=== PATIENT | male | born 1950 | race Caucasian/White ===

== ENCOUNTER → 2018-09-24 14:02 | Outpatient (CLI) | payer MEDICARE, BC ==
[2018-09-27 14:14] LABS: IMMUNOGLOBULIN E 129 IU/mL (0-100)
== END | disposition home or self-care (01) ==
LOC: D.RT 14:02
PROVIDERS: Internal Medicine Pulmonary Disease
DX: J44.9 Chronic obstructive pulmonary disease, unspecified (principal); J30.9 Allergic rhinitis, unspecified

== ENCOUNTER 2019-04-27 05:34 | Day surgery (SDC) | payer MEDICARE, BC ==
[~2019-04-27] VITALS: Ht 167.6 cm; Wt 57.7 kg
[2019-04-27 05:57] LABS: HEMATOCRIT 45.9 % (42.0-54.0); HEMOGLOBIN 15.5 g/dL (13.5-17.5); MCH 29.9 pg (26.0-34.0); MCHC 33.8 g/dL (31.0-37.0); MCV 88.6 fL (80.0-100.0); MEAN PLATELET VOLUME 9.7 fL (7.4-10.4); RBC 5.18 10x6/uL (4.20-6.10); RDW 13.2 % (11.5-14.5); WBC 8.3 10x3/uL (4.8-10.8)
[2019-04-27] MEDS ORDERED: CALAN SR120 MG PO (07:07)
[2019-04-27] MEDS ORDERED: REMERON15 MG PO (07:08)
[2019-04-27] MEDS ORDERED: SYMBICORT 16010.2 GM INH (07:08)
[2019-04-27] MEDS ORDERED: KLONOPIN1 MG PO (07:08)
[2019-04-27] MEDS ORDERED: ATROVENT 0.02%2.5 ML UPD (07:09)
[2019-04-27] MEDS ORDERED: SINGULAIR10 MG PO (07:09)
[2019-04-27] MEDS ORDERED: ALBUTEROL2.5 MG/3 M INH (07:10)
[2019-04-27] MEDS ORDERED: SPIRIVA RESPIMAT4 G1 INH (07:10)
[2019-04-27] MEDS ORDERED: MEGACE40 MG PO (07:11)
[2019-04-27] MEDS ORDERED: BUSPAR5 MG PO (07:11)
[2019-04-27] MEDS ORDERED: NEXIUM40 MG PO (07:12)
[2019-04-27] MEDS ORDERED: CLARITIN 10 MG10 MG PO (07:12)
[2019-04-27 07:46] VITALS: BP 120/71; Ht 167.6 cm; Wt 57.7 kg
--- NOTE | 2019-04-27 09:17 | NUR ---
0840-RECD TO ROOM FROM GI LAB. DR DIAZ IN TO REPORT FINDINGS. 909-DISCHARGE INSTRUCTIONS REVIEWED. 911-D/C HOME VIA WHEELCHAIR WITH .
--- NOTE | 2019-04-28 15:43 | OP ---
PATIENT NAME: YESSY JAIN MEDICAL RECORD: [id number] :52 LOCATION:[facility] ADMISSION DATE: SURGEON: MERY DIAZ DO DATE OF OPERATION: 04/27/2019 PROCEDURES: EGD with biopsies. INDICATIONS FOR PROCEDURE: Epigastric fullness, GERD, nausea. SCOPE: Olympus video gastroscope. MEDICATIONS: Propofol 100 mg IV per anesthesia. ESTIMATED BLOOD LOSS: Minimal. COMPLICATIONS: None. FINDINGS: Informed consent was given. The patient was made comfortable with the above medication. After reaching an adequate level of sedation by slow IV push, the patient was placed on the left side. The endoscope was advanced under direct visualization through the mouth to the second portion of the duodenum. The entire esophagus appeared normal, other than some reflux, which was apparent on passage of the endoscope through the esophagus itself. At the GE junction, the Z-line appeared normal without evidence of severe reflux esophagitis. The endoscope was advanced beyond the GE junction into the stomach and retroflexed to view the cardia and fundus, which appeared normal. Throughout the body of the stomach, the antrum, and prepyloric regions, there were some granularity and erythema consistent with patchy gastritis. Random cold forceps biopsies were taken to submit for histopathology and to rule out the presence of H. pylori. The endoscope was advanced beyond the pylorus into the duodenum, which appeared normal to the second portion. The endoscope was withdrawn from the patient. The patient tolerated the procedure well and there were no complications. IMPRESSION: 1. Reflux visualized on passage of the endoscope through the esophagus. 2. Mild gastritis. Biopsies taken. PLAN AND RECOMMENDATIONS: 1. Discharge home when recovery parameters are met. 2. Follow up biopsy specimen results. 3. GERD diet and reflux precautions. 4. Continue current medications. 5. Gastric emptying scan to rule out gastroparesis based on symptoms of epigastric fullness and nausea. TRANSINT:[id number] Voice Confirmation ID: [id number] DOCUMENT ID: [id number] OPERATIVE REPORT [id number] YESSY JAIN MERY DAIZ DO at 1543 CC: [id number] DICTATION DATE: 04/27/19 0833 CREDENTIALER: 04/27/19 1126 [facility] 04/27/19 [place] [address]
== END 2019-04-27 09:12 | disposition home or self-care (01) ==
LOC: D.OPS 05:34
PROVIDERS: Anesthesiology; ATTEND Internal Medicine Gastroenterology
DX: K21.9 Gastro-esophageal reflux disease without esophagitis (principal); R11.0 Nausea; K29.70 Gastritis, unspecified, without bleeding; Z01.812 Encounter for preprocedural laboratory examination

== ENCOUNTER → 2019-04-30 11:28 | Outpatient (CLI) | payer MEDICARE, BC ==
[2019-04-27 07:46] VITALS: BMI 20.5
[~2019-04-30 11:28] MED LIST: ALBUTEROL2.5 MG/3 M INH; ATROVENT 0.02%2.5 ML UPD; BUSPAR5 MG PO; CALAN SR120 MG PO; CLARITIN 10 MG10 MG PO; KLONOPIN1 MG PO; MEGACE40 MG PO; NEXIUM40 MG PO; REMERON15 MG PO; SINGULAIR10 MG PO; SPIRIVA RESPIMAT4 G1 INH; SYMBICORT 16010.2 GM INH
== END | disposition home or self-care (01) ==
LOC: D.NM 11:28
PROVIDERS: ATTEND Internal Medicine Gastroenterology
DX: R10.13 Epigastric pain (principal); R11.0 Nausea

== ENCOUNTER 2019-05-11 09:19 | Day surgery (SDC) | payer MEDICARE, BC ==
[~2019-05-11] VITALS: Ht 167.6 cm; Wt 57.7 kg
[2019-05-11 09:33] LABS: HEMATOCRIT 46.7 % (42.0-54.0); HEMOGLOBIN 15.8 g/dL (13.5-17.5); MCH 30.2 pg (26.0-34.0); MCHC 33.8 g/dL (31.0-37.0); MCV 89.1 fL (80.0-100.0); MEAN PLATELET VOLUME 9.6 fL (7.4-10.4); RBC 5.24 10x6/uL (4.20-6.10); WBC 10.1 10x3/uL (4.8-10.8)
[2019-05-11 10:44] VITALS: BP 137/77; Ht 167.6 cm; Wt 57.7 kg
--- NOTE | 2019-05-11 12:05 | NUR ---
PT DC INSTRUCTIONS REVIEWED PT VERBALIZED UNDERSTANDING.
--- NOTE | 2019-05-11 12:11 | NUR ---
IV REMOVED AND PRESSURE HELD DRESSING APPLIED
--- NOTE | 2019-05-14 16:17 | OP ---
PATIENT NAME: YESSY JAIN MEDICAL RECORD: [id number] :52 LOCATION:[facility] ADMISSION DATE: SURGEON: MERY DIAZ DO DATE OF OPERATION: 05/11/2019 PROCEDURE: Colonoscopy with polypectomy. INDICATION FOR PROCEDURE: Screening for colorectal cancer. The patient's last colonoscopy was on 05/17/2014, at which point polyps were removed near the anastomosis. SCOPE: Olympus video pediatric colonoscope. MEDICATIONS: Propofol 350 mg IV per anesthesia. WITHDRAWAL TIME: 6 minutes. COMPLICATIONS: None. FINDINGS: Informed consent was given. The patient was made comfortable with the above medication. After reaching an adequate level of sedation by slow IV push, the patient was placed on his left side. A digital rectal examination was performed and was normal. The endoscope was then advanced under direct visualization through the rectum to the cecum and the terminal ileum. The endoscope was slowly withdrawn and mucosa was carefully examined. The prep quality was excellent. There was a single polyp removed on today's examination. It was a benign-appearing sessile polyp located in the distal transverse colon. It was removed using a hot snare in one piece and completely retrieved. The polyp itself was a thick polyp that left a slight defect in the tissue beneath. To prevent a delayed complication, a single endoclip was used for tissue positioning. There was evidence of mild diverticulosis involving the sigmoid colon. There was no evidence of diverticulitis. The site of the previous bowel resection was visualized near the rectosigmoid junction. Retroflexion was performed in the rectum with visualization of grade I internal hemorrhoids without bleeding. The endoscope was withdrawn from the patient. The patient tolerated the procedure well and there were no complications. IMPRESSION: 1. Single, benign-appearing polyp as described above, removed using a hot snare with a subsequent endoclip placement. 2. Mild diverticulosis of the sigmoid colon without evidence of diverticulitis. 3. Visualization of prior bowel resection. 4. Grade I internal hemorrhoids without bleeding. PLAN AND RECOMMENDATIONS: 1. Discharge home when recovery parameters are met. 2. Follow up biopsy specimen results. 3. High fiber diet. 4. Continue current medications. 5. Recall colonoscopy in 3-5 years. TRANSINT:[id number] Voice Confirmation ID: [id number] DOCUMENT ID: [id number] OPERATIVE REPORT [id number] YESSY JAIN MERY DIAZ DO at 1617 CC: [id number] DICTATION DATE: 05/11/19 1126 [employer] FINISH[employer] RANGE OPERATOR CHIEF: 05/11/19 1335 [facility] [place] 05/11/19 [id number] [place] [address]
== END 2019-05-11 12:45 | disposition home or self-care (01) ==
LOC: D.OPS 09:19
PROVIDERS: Anesthesiology; ATTEND Internal Medicine Gastroenterology
DX: Z12.11 Encounter for screening for malignant neoplasm of colon (principal); D12.3 Benign neoplasm of transverse colon; K57.30 Diverticulosis of large intestine without perforation or abscess without bleeding; K64.0 First degree hemorrhoids; Z86.010 Personal history of colon polyps; Z01.812 Encounter for preprocedural laboratory examination

== ENCOUNTER 2019-06-22 14:22 | Inpatient (IN) | payer MEDICARE, BC ==
[~2019-06-22] VITALS: Ht 167.6 cm; Wt 54.4 kg
[2019-06-22 15:14] LABS: BASOPHILS 0.2 % (0-2); EOSINOPHILS 5.5 % (0-7); HEMATOCRIT 46.6 % (42.0-54.0); HEMOGLOBIN 16.2 g/dL (13.5-17.5); IMMATURE GRANULOCYTES 0.2 % (0-5); LYMPHOCYTES 22.6 % (15-50); MCH 30.6 pg (26.0-34.0); MCHC 34.8 g/dL (31.0-37.0); MCV 87.9 fL (80.0-100.0); MEAN PLATELET VOLUME 9.6 fL (7.4-10.4); MONOCYTES 10.2 % (2-11); NEUTROPHILS 61.3 % (40-80); PLATELET COUNT 228 10x3/uL (130-400); RDW 12.7 % (11.5-14.5)
[2019-06-22 15:25] LABS: APTT 26.5 SECONDS (22.8-39.4); PROTIME 12.7 SECONDS (11.6-15.0)
[2019-06-22 15:41] LABS: ALBUMIN 3.8 g/dL (3.4-5.0); ALKALINE PHOSPHATASE 76 U/L (46-116); ALT (SGPT) 28 U/L (10-68); BILIRUBIN - TOTAL 0.57 mg/dL (0.2-1.3); CALC OSMOLALITY 278 mosm/kg (275-300); CARBON DIOXIDE 26.5 mmol/L (21.0-32.0); CHLORIDE - SERUM 104 mmol/L (98-107); CREATININE - SERUM 1.1 mg/dL (0.6-1.3); GLUCOSE 107 mg/dL (74-106); POTASSIUM - SERUM 4.2 mmol/L (3.5-5.1); PROTEIN - SERUM 7.5 g/dL (6.4-8.2); SODIUM 140 mmol/L (136-145); UREA NITROGEN 13 mg/dL (7-18); eGFR NON AFRICAN AMERICAN 71 mL/min (90-120)
[2019-06-22 15:52] LABS: CKMB 2.9 U/L (0.0-3.6); CREATINE KINASE 95 UL (21-232); PRO BNP 89 pg/mL (0-125); TROPONIN-I < 0.017 ng/mL (0.000-0.060)
[2019-06-22] MEDS ORDERED: AMBIEN10 MG (19:38)
[2019-06-22 19:39] VITALS: BP 133/77; BMI 19.4
[2019-06-22] MEDS ORDERED: REGLAN5 MG (19:39)
--- NOTE | 2019-06-22 19:45 | NUR ---
RECIEVED BEDSIDE REPORT. EVENING ROUNDS COMPLETED. VSS, AAOX4, SPOUSE AT BEDSIDE. COMPLETED PT ADMISSION ASSESSMENT. MED REC COMPLETED. WILL NOTIFY INTELLIGENCE SUPPORT OFFICER, ABOUT PT'S REQUEST FOR HIS "HEART" MEDICATION TONIGHT. PT ON 2L OXYGEN. PT DENIES ANY FURTHER NEEDS AT THIS TIME. WILL CPOC. CL WITHIN REACH, BED IN LOW, SR UP X2.
--- NOTE | 2019-06-22 20:38 | NUR ---
NOTIFIED BERNA HESTER ABOUT PT'S HOME MEDS. KACIE STATES HE WILL RESTART IT. TURKEY SANDWICH PROVIDED TO PT AT THIS TIME. PT DENIES ANY FURTHER NEEDS. WILL CTM.
[2019-06-23] VITALS: BP 110/76
[2019-06-23 04:00] VITALS: BP 109/76
[2019-06-23 06:56] LABS: ALBUMIN 3.5 g/dL (3.4-5.0); ALKALINE PHOSPHATASE 70 U/L (46-116); ALT (SGPT) 25 U/L (10-68); BILIRUBIN - TOTAL 0.58 mg/dL (0.2-1.3); CALCIUM 8.7 mg/dL (8.5-10.1); CARBON DIOXIDE 24.5 mmol/L (21.0-32.0); CHLORIDE - SERUM 105 mmol/L (98-107); MAGNESIUM - SERUM 2.3 mg/dL (1.8-2.4); POTASSIUM - SERUM 4.4 mmol/L (3.5-5.1); PROTEIN - SERUM 7.2 g/dL (6.4-8.2); SODIUM 139 mmol/L (136-145); eGFR NON AFRICAN AMERICAN 79 mL/min (90-120)
[2019-06-23 06:57] LABS: BASOPHILS 0 % (0-2); CALC OSMOLALITY 283 mosm/kg (275-300); EOSINOPHILS 0 % (0-7); GLUCOSE 169 mg/dL (74-106); HEMATOCRIT 43.9 % (42.0-54.0); HEMOGLOBIN 15.3 g/dL (13.5-17.5); IMMATURE GRANULOCYTES 0.2 % (0-5); LYMPHOCYTES 15.9 % (15-50); MCH 30.1 pg (26.0-34.0); MCHC 34.9 g/dL (31.0-37.0); MCV 86.4 fL (80.0-100.0); MEAN PLATELET VOLUME 10.1 fL (7.4-10.4); MONOCYTES 1.1 % (2-11); NEUTROPHILS 82.8 % (40-80); PLATELET COUNT 253 10x3/uL (130-400); RBC 5.08 10x6/uL (4.20-6.10); RDW 12.6 % (11.5-14.5); UREA NITROGEN 18 mg/dL (7-18)
[2019-06-23 07:02] LABS: WBC 4.7 10x3/uL (4.8-10.8)
--- NOTE | 2019-06-23 07:09 | NUR ---
REPORT RECEIVED. WILL CONTINUE WITH POC.PT CURRENTLY LYING SEMI FOWLERS. CALL LIGHT W/I REACH. PT IS AAO AND UP AD PEGGY. FAMILY AT BEDSIDE. RR EVEN AND UNLABORED ON 3L 02. R.AC PIV IS SALINE LOCKED. PT DENIES ANY NEEDS AT THIS TIME. NO S/S OF DISTRESS NOTED. WILL CTM.
[2019-06-23 08:33] VITALS: BP 131/76
[2019-06-23 11:49] VITALS: BP 137/77
[2019-06-23 12:30] LABS: CKMB 2.3 U/L (0.0-3.6); CREATINE KINASE 103 UL (21-232); TROPONIN-I < 0.017 ng/mL (0.000-0.060)
[2019-06-23 14:47] VITALS: Ht 167.6 cm; Wt 54.4 kg
[2019-06-23 15:26] VITALS: BP 130/79
[2019-06-23 18:27] LABS: CKMB 2.6 U/L (0.0-3.6); CREATINE KINASE 141 UL (21-232); TROPONIN-I < 0.017 ng/mL (0.000-0.060)
--- NOTE | 2019-06-23 19:38 | NUR ---
PT RESTING IN BED WITH EYES OPEN. FAMILY AT BED SIDE. NAME AND DATE PLACED ON BOARD. PT HAS NO S/S OF DISTRESS.3L O2 NC. PT IS AAO. SPOKE ABOUT PLAN OF CARE. PT VERBALIZED UNDERSTANDING. DENIES ANY QUESTIONS OR CONCERNS AT THIS TIME. BED LOW AND CALL LIGHT IN REACH. WILL CPOC
[2019-06-23 20:00] VITALS: BP 121/65
--- NOTE | 2019-06-23 23:45 | NUR ---
PLACED MONITOR ON PT AND LAB DRAWED CARDIAC LABS. NO S/S OF DISTRESS. BED LOW AND CALL LIGHT IN REACH. WILL CPOC
[2019-06-24] VITALS: BP 126/68
[2019-06-24 00:25] LABS: CKMB 2.2 U/L (0.0-3.6); CREATINE KINASE 165 UL (21-232); TROPONIN-I < 0.017 ng/mL (0.000-0.060)
[2019-06-24 06:15] LABS: BASOPHILS 0 % (0-2); EOSINOPHILS 0 % (0-7); HEMATOCRIT 39.3 % (42.0-54.0); HEMOGLOBIN 13.8 g/dL (13.5-17.5); IMMATURE GRANULOCYTES 0.2 % (0-5); LYMPHOCYTES 7.4 % (15-50); MCH 30.7 pg (26.0-34.0); MCHC 35.1 g/dL (31.0-37.0); MCV 87.5 fL (80.0-100.0); MEAN PLATELET VOLUME 9.7 fL (7.4-10.4); MONOCYTES 4.2 % (2-11); NEUTROPHILS 88.2 % (40-80); PLATELET COUNT 218 10x3/uL (130-400); RBC 4.49 10x6/uL (4.20-6.10); RDW 12.6 % (11.5-14.5)
[2019-06-24 06:22] LABS: WBC 11.4 10x3/uL (4.8-10.8)
--- NOTE | 2019-06-24 06:37 | NUR ---
PT SITTING UP IN BED WITH EYES OPEN. SPOUSE AT BEDSIDE. PT VERBALIZED UNDERSTANDING OF MORNING MEDICATIONS. DENIES ANY QUESTIONS OR CONCERNS. WILL CPOC
[2019-06-24 06:49] VITALS: BP 97/62
[2019-06-24 06:55] LABS: ALBUMIN 3.1 g/dL (3.4-5.0); ANION GAP 11.3 mmol/L (8-16); BILIRUBIN - TOTAL 0.42 mg/dL (0.2-1.3); CALCIUM 8.4 mg/dL (8.5-10.1); CARBON DIOXIDE 28.7 mmol/L (21.0-32.0); CREATININE - SERUM 1.2 mg/dL (0.6-1.3); MAGNESIUM - SERUM 2.2 mg/dL (1.8-2.4); PHOSPHOROUS 4.4 mg/dL (2.5-4.9); PROTEIN - SERUM 6.2 g/dL (6.4-8.2)
[2019-06-24 08:32] VITALS: BP 114/66
[2019-06-24 12:43] VITALS: BP 114/69
[2019-06-24] MEDS ORDERED: PREDNISONE10 MG PO (15:36)
[2019-06-24] MEDS ORDERED: OMNICEF300 MG PO (15:38)
--- NOTE | 2019-06-24 16:58 | NUR ---
I have reviewed this patient and I concur with the Shift Assessment completed by the Licensed Practical Nurse today this shift.
--- NOTE | 2019-06-24 17:05 | MORECARE ---
CASE MANAGEMENT DISCHARGE SUMMARY PATIENT: YESSY JAIN UNIT: [id number] ADM DATE: 06/22/19 AGE: 69 : 51 SEX: M ROOM/BED: D.2136 AUTHOR: UGO,DOC PHYSICIAN: REFERRING PHYSICIAN: SIM GASTELUM MD DATE OF SERVICE: 06/24/19 Discharge Plan Patient Name: YESSY JAIN Facility: [facility]:[place] : 1950 Planned Disposition: Home Anticipated Discharge Date: 06/24/19 Discharge Date: Expected LOS: 2 Initial Reviewer: [email or web address] Initial Review Date: 06/24/2019 Generated: 06/24/19 6:05 pm Comments DCP- Discharge Planning Updated by [id number]: Juan J Wagner on 06/24/19 4:[address] Patient Name: YESSY JAIN Admission Status: ER Accout number: [id number] Admission Date: 06-22-2019 : 1950 Admission Diagnosis: Attending: SIM GASTELUM Current LOS: 2 Anticipated DC Date: 06-24-2019 Planned Disposition: Home Primary Insurance: MEDICARE A & B Discharge Planning Comments: CM MET WITH PT IN ROOM TO DISCUSS DISCHARGE PLANNING AND NEEDS. YESSY JAIN provided verbal consent to discuss current and ongoing needs with/in the presence of: SPOUSE, AJ. PT REPORTS LIVING AT HOME INDEPENDENTLY WITH HIS . PT HAS NEBULIZER, HOME AND PORTABLE OXYGEN FROM [facility]. PT HAS NO OUTSIDE SERVICES ASSISTING IN THE HOME. CM DISCUSSED AVAILABILITY OF HOME HEALTH, REHAB SERVICES AND MEDICAL EQUIPMENT. PT DENIES DISCHARGE NEEDS, REPORTS HIS IS HERE AND IS READY TO TAKE HIM HOME NOW. PHOTO MASK CLEANER NURSE NOTIFIED. Head Well Puller: Juan J Wagner DCPIA - Discharge Planning Initial Assessment Updated by [id number]: Juan J Wagner on 06/24/19 5:01 pm * Is the patient Alert and Oriented? Yes * How many steps to enter\exit or inside your home? * PCP DR MEDRANO * Pharmacy [facility], [address] * Preadmission Environment Home with Family * ADLs Independent * Equipment Nebulizer Oxygen * Other Equipment HOME AND PORTABLE OXYGEN [facility] - PROVIDER * List name and contact numbers for known caregivers / representatives who currently or will assist patient after discharge: AJ JAIN SPOUSE, * Verbal permission to speak to the caregivers and representatives has been obtained from the patient. Yes * Community resources currently utilized None * Please name any agencies selected above. NONE * Additional services required to return to the preadmission environment? No * Can the patient safely return to the preadmission environment? Yes * Has this patient been hospitalized within the prior 30 days at any hospital? No Patient Name: YESSY JAIN Page [phone] at 1705 All edits/amendments must be made on the electronic document DICTATION DATE: 06/24/191703 EMS INSTRUCTOR: RASHAD 06/24/191703 RPT#: [id number] DC DATE: STATUS: ADM IN [facility] [address] [place] [address] END OF REPORT
--- NOTE | 2019-06-24 17:22 | NUR ---
PT DISCHARGED HOME VIA WHEELCHAIR WITH FAMILY. PIV REMOVED WITH CATHETER TIP FULLY INTACT. TELEMETRY REMOVED AND RETURNED. PT SIGNED PROPER DISCHARGE INSTRUCTIONS AND REMOVED ALL VALUABLES FROM THE ROOM.
== END 2019-06-24 17:23 | disposition home or self-care (01) | DRG 189 ==
LOC: D.ER 14:22 → D.M2 17:50
PROVIDERS: Family Medicine; ADMIT Family Medicine; ATTEND Family Medicine
DX: J96.21 Acute and chronic respiratory failure with hypoxia (principal); J44.1 Chronic obstructive pulmonary disease with (acute) exacerbation; F41.9 Anxiety disorder, unspecified; K21.9 Gastro-esophageal reflux disease without esophagitis; I10 Essential (primary) hypertension; E78.00 Pure hypercholesterolemia, unspecified; G47.00 Insomnia, unspecified; Z87.891 Personal history of nicotine dependence; Z86.010 Personal history of colon polyps

== ENCOUNTER → 2019-07-13 07:24 | Outpatient (CLI) | payer MEDICARE, BC ==
[2019-06-23 14:47] VITALS: BMI 19.3
[~2019-07-13 07:24] MED LIST changes: +AMBIEN10 MG; +OMNICEF300 MG PO; +PREDNISONE10 MG PO; +REGLAN5 MG
== END | disposition home or self-care (01) ==
LOC: D.RT 07:24
PROVIDERS: ATTEND Internal Medicine Pulmonary Disease
DX: J44.9 Chronic obstructive pulmonary disease, unspecified (principal)

== ENCOUNTER 2020-01-30 18:08 | Inpatient (IN) | payer MEDICARE, BC ==
[~2020-01-30] VITALS: Ht 167.6 cm; Wt 54.5 kg
[2020-01-30 19:24] LABS: BASOPHILS 0.2 % (0-2); EOSINOPHILS 3.2 % (0-7); HEMATOCRIT 40.4 % (42.0-54.0); HEMOGLOBIN 13.3 g/dL (13.5-17.5); IMMATURE GRANULOCYTES 0.2 % (0-5); LYMPHOCYTES 8.3 % (15-50); MCH 29.2 pg (26.0-34.0); MCHC 32.9 g/dL (31.0-37.0); MCV 88.6 fL (80.0-100.0); MONOCYTES 12.5 % (2-11); NEUTROPHILS 75.6 % (40-80); PLATELET COUNT 240 10x3/uL (130-400); RBC 4.56 10x6/uL (4.20-6.10); RDW 12.9 % (11.5-14.5); WBC 9.7 10x3/uL (4.8-10.8)
[2020-01-30 19:39] LABS: APTT 37.9 SECONDS (22.8-39.4); INR 1.03 (0.85-1.17); PROTIME 13.4 SECONDS (11.6-15.0)
[2020-01-30 19:41] LABS: CALC OSMOLALITY 281 mosm/kg (275-300); CALCIUM 8.2 mg/dL (8.5-10.1); CARBON DIOXIDE 31.3 mmol/L (21.0-32.0); CHLORIDE - SERUM 104 mmol/L (98-107); CREATININE - SERUM 0.9 mg/dL (0.6-1.3); GLUCOSE 140 mg/dL (74-106); POTASSIUM - SERUM 3.8 mmol/L (3.5-5.1); SODIUM 141 mmol/L (136-145); UREA NITROGEN 10 mg/dL (7-18); eGFR NON AFRICAN AMERICAN 89 mL/min (90-120)
[2020-01-30 19:59] LABS: ALBUMIN 2.9 g/dL (3.4-5.0); ALKALINE PHOSPHATASE 73 U/L (30-120); ALT (SGPT) 29 U/L (10-68); BILIRUBIN - TOTAL 0.51 mg/dL (0.2-1.3); CREATINE KINASE 48 UL (21-232); PRO BNP 227 pg/mL (0-125); PROTEIN - SERUM 5.9 g/dL (6.4-8.2)
[2020-01-30 20:00] LABS: TROPONIN-I < 0.017 ng/mL (0.000-0.060)
[2020-01-30 22:27] VITALS: BP 103/44
--- NOTE | 2020-01-30 22:28 | NUR ---
PT LAYING IN BED. RESPIRATIONS ARE EVEN AND UNLABORED. NO DISTRESS NOTED. COLOR WNL FOR RACE. VSS. WILL CONTINUE TO MONITOR. FAMILY AT BEDSIDE.
--- NOTE | 2020-01-31 00:27 | NUR ---
RECEIVED REPORT, HISTORY AND MEDS COMPLETE, PLACED ON TELEMTRY, IV-RFA-NS AND ANTIBONIC INFUSING, BED IS LOW, SRX1, CALL LIGHT IN REACH, WILL CONTINUE PLAN OF CARE
[2020-01-31 00:47] VITALS: BP 145/72; BMI 19.4
--- NOTE | 2020-01-31 01:07 | NUR ---
ADMISSION ASSESSMENT COMPLETED. PT RESTING IN BED. AT BEDSIDE. IVF INFUSING. CPOC.
[2020-01-31 04:00] VITALS: BP 97/49
[2020-01-31 05:51] LABS: BASOPHILS 0 % (0-2); EOSINOPHILS 0 % (0-7); HEMATOCRIT 36.2 % (42.0-54.0); HEMOGLOBIN 11.6 g/dL (13.5-17.5); IMMATURE GRANULOCYTES 0.3 % (0-5); LYMPHOCYTES 4.8 % (15-50); MCH 28.6 pg (26.0-34.0); MCV 89.2 fL (80.0-100.0); MEAN PLATELET VOLUME 10.2 fL (7.4-10.4); MONOCYTES 1.3 % (2-11); NEUTROPHILS 93.6 % (40-80); PLATELET COUNT 210 10x3/uL (130-400); RBC 4.06 10x6/uL (4.20-6.10); RDW 12.9 % (11.5-14.5)
[2020-01-31 06:24] LABS: CALC OSMOLALITY 286 mosm/kg (275-300); CARBON DIOXIDE 25.9 mmol/L (21.0-32.0); CHLORIDE - SERUM 112 mmol/L (98-107); CREATININE - SERUM 0.8 mg/dL (0.6-1.3); GLUCOSE 123 mg/dL (74-106); SODIUM 144 mmol/L (136-145); UREA NITROGEN 9 mg/dL (7-18); eGFR NON AFRICAN AMERICAN > 90 mL/min (90-120)
[2020-01-31 06:26] LABS: CALCIUM 6.9 mg/dL (8.5-10.1)
[2020-01-31 10:00] VITALS: BP 139/75
[2020-01-31 12:20] VITALS: BP 145/84
--- NOTE | 2020-01-31 16:21 | NUR ---
I have reviewed this patient and I concur with the Shift Assessment completed by the Licensed Practical Nurse today this shift.
[2020-01-31 16:37] VITALS: BP 139/75
--- NOTE | 2020-01-31 19:15 | NUR ---
RECEIVED REPORT, WILL ASSUME CARE OF PT, WATCHING TV, DENIES ANY NEEDS, BED IS LOW, SRX2, CALL LIGHT IN REACH, AT BEDSIDE, WILL CONTINUE PLAN OF CARE
[2020-01-31 20:00] VITALS: BP 133/82
[2020-02-01 00:30] VITALS: BP 112/62
[2020-02-01 04:00] VITALS: BP 107/54
--- NOTE | 2020-02-01 05:12 | NUR ---
I have reviewed this patient and I concur with the Shift Assessment completed by the Licensed Practical Nurse today this shift.
[2020-02-01 09:01] VITALS: BP 113/55
[2020-02-01 09:02] LABS: CALC OSMOLALITY 283 mosm/kg (275-300); CALCIUM 7.9 mg/dL (8.5-10.1); CARBON DIOXIDE 27.3 mmol/L (21.0-32.0); CHLORIDE - SERUM 108 mmol/L (98-107); CREATININE - SERUM 0.9 mg/dL (0.6-1.3); GLUCOSE 158 mg/dL (74-106); POTASSIUM - SERUM 3.4 mmol/L (3.5-5.1); SODIUM 141 mmol/L (136-145); eGFR NON AFRICAN AMERICAN 89 mL/min (90-120)
[2020-02-01 09:07] LABS: UREA NITROGEN 12 mg/dL (7-18)
[2020-02-01 11:00] VITALS: BP 117/66
--- NOTE | 2020-02-01 14:21 | NUR ---
ALERT AND ORIENTED X4. SITTING UP IN BED. SPOUSE AT BEDSIDE. ECHO BEING DONE AT BEDSIDE. DENIES ANY NEEDS. CONTINUE PLAN OF CARE AND SAFETY PRECAUTIONS.
[2020-02-01 15:16] VITALS: Ht 167.6 cm; Wt 54.5 kg
--- NOTE | 2020-02-01 19:00 | NUR ---
EVENING ROUNDS COMPLETE. PT SITTING UP IN BED. NO SIGNS OF DISTRESS. FAMILY AT BEDSIDE. PT DENIES ANY PAIN OR NEEDS AT THIS TIME. CL IN REACH, BED IN LOWEST POSITION.
[2020-02-01 20:00] VITALS: BP 124/75
[2020-02-02] VITALS: BP 125/65
[2020-02-02 04:00] VITALS: BP 137/82
[2020-02-02 06:48] LABS: CALC OSMOLALITY 291 mosm/kg (275-300); CALCIUM 7.6 mg/dL (8.5-10.1); CARBON DIOXIDE 28.1 mmol/L (21.0-32.0); CHLORIDE - SERUM 111 mmol/L (98-107); CREATININE - SERUM 0.8 mg/dL (0.6-1.3); GLUCOSE 146 mg/dL (74-106); POTASSIUM - SERUM 3.9 mmol/L (3.5-5.1); SODIUM 145 mmol/L (136-145); UREA NITROGEN 13 mg/dL (7-18); eGFR NON AFRICAN AMERICAN > 90 mL/min (90-120)
--- NOTE | 2020-02-02 07:20 | NUR ---
RECIEVE REPORT. ALERT AND ORIENTED X4. SITTING UP IN BED. SPOUSE AT BEDSIDE. DENIES ANY NEEDS AT THIS TIME. SINUS RYTHM ON TELEMETRY. CONTINUE PLAN OF CARE AND SAFETY PRECAUTIONS.
[2020-02-02 07:50] LABS: BASOPHILS 0.1 % (0-2); EOSINOPHILS 0 % (0-7); HEMATOCRIT 32.3 % (42.0-54.0); HEMOGLOBIN 10.3 g/dL (13.5-17.5); IMMATURE GRANULOCYTES 0.3 % (0-5); LYMPHOCYTES 7.2 % (15-50); MCH 28.6 pg (26.0-34.0); MCHC 31.9 g/dL (31.0-37.0); MCV 89.7 fL (80.0-100.0); MEAN PLATELET VOLUME 10.1 fL (7.4-10.4); MONOCYTES 5.6 % (2-11); NEUTROPHILS 86.8 % (40-80); PLATELET COUNT 253 10x3/uL (130-400)
[2020-02-02 09:41] VITALS: BP 137/79
[2020-02-02 12:47] VITALS: BP 129/75
[2020-02-02 16:56] VITALS: BP 116/72
--- NOTE | 2020-02-02 19:13 | NUR ---
EVENING ROUNDS COMPLETE. PT LAYING IN BED. NO SIGNS OF DISTRESS. FAMILY AT BEDSIDE. PT DENIES ANY PAIN OR NEEDS AT THIS TIME. CL IN REACH, BED IN LOWEST POSITION.
[2020-02-02 22:08] VITALS: BP 135/75
[2020-02-03] VITALS: BP 123/68
--- NOTE | 2020-02-03 04:01 | NUR ---
RESTING WITH EYES CLOSED, RESPERATIONS EVEN, NO S/S DISTRESS NOTED.
[2020-02-03 05:27] LABS: BASOPHILS 0 % (0-2); EOSINOPHILS 0 % (0-7); HEMATOCRIT 37.8 % (42.0-54.0); IMMATURE GRANULOCYTES 0.4 % (0-5); LYMPHOCYTES 8.1 % (15-50); MCH 28.4 pg (26.0-34.0); MCHC 31.7 g/dL (31.0-37.0); MCV 89.6 fL (80.0-100.0); MONOCYTES 5.1 % (2-11); NEUTROPHILS 86.4 % (40-80); PLATELET COUNT 289 10x3/uL (130-400); RBC 4.22 10x6/uL (4.20-6.10); RDW 13.1 % (11.5-14.5); WBC 8.3 10x3/uL (4.8-10.8)
[2020-02-03 05:31] VITALS: BP 118/71
[2020-02-03 05:49] LABS: CALC OSMOLALITY 288 mosm/kg (275-300); CALCIUM 7.9 mg/dL (8.5-10.1); CARBON DIOXIDE 30.9 mmol/L (21.0-32.0); CHLORIDE - SERUM 109 mmol/L (98-107); CREATININE - SERUM 0.9 mg/dL (0.6-1.3); GLUCOSE 137 mg/dL (74-106); POTASSIUM - SERUM 3.6 mmol/L (3.5-5.1); SODIUM 144 mmol/L (136-145); UREA NITROGEN 12 mg/dL (7-18); eGFR NON AFRICAN AMERICAN 89 mL/min (90-120)
--- NOTE | 2020-02-03 06:29 | NUR ---
I have reviewed this patient and I concur with the Shift Assessment completed by the Licensed Practical Nurse today this shift.
[2020-02-03 08:19] VITALS: BP 164/86
--- NOTE | 2020-02-03 12:20 | NUR ---
I have reviewed this patient and I concur with the Shift Assessment completed by the Licensed Practical Nurse today this shift.
[2020-02-03 12:21] VITALS: BP 116/68
--- NOTE | 2020-02-03 13:48 | NUR ---
Nutrition Follow-up: Eating well. Noted possible d/c for today. Diet: Cardiac PO intake: 50-100% Wt: 120# (02/02); 120# (01/31) Last BM: 02/01 per chart. Labs noted: Glu 137, Ca 7.9 Meds noted: Protonix, NS @ 100 -Continue current diet as tolerated. -RD following.
[2020-02-03] MEDS ORDERED: OMNICEF300 MG PO (15:49)
[2020-02-03] MEDS ORDERED: VIBRAMYCIN 100100 MG PO (15:49)
[2020-02-03] MEDS ORDERED: PREDNISONE10 MG PO (15:50)
[2020-02-03 16:20] VITALS: BP 135/83
--- NOTE | 2020-02-03 16:21 | NUR ---
TELEMETRY SKY[employer]Charity.
--- NOTE | 2020-02-03 17:56 | MORECARE ---
CASE MANAGEMENT DISCHARGE SUMMARY PATIENT: YESSY JAIN UNIT: [id number] ADM DATE: 01/30/20 AGE: 69 : 51 SEX: M ROOM/BED: D.0342 AUTHOR: UGO,DOC PHYSICIAN: REFERRING PHYSICIAN: LEIGH ANN SULLIVAN MD DATE OF SERVICE: 02/03/20 Discharge Plan Patient Name: [facility]ESSY JAIN [facility] [facility] 1950 Planned Disposition: Home Anticipated Discharge Date: 02/03/20 Discharge Date: Expected LOS: 4 Initial Reviewer: [email or web address] Initial Review Date: 02/03/2020 Generated: 02/03/20 6:55 pm Comments DCP- Discharge Planning Updated by [id number]: Juan J Wagner on 02/03/20 4:[address] Patient Name: YESSY JAIN Admission Status: ER Accout number: [id number] Admission Date: 01-30-2020 : 1950 Admission Diagnosis: Attending: LEIGH ANN SULLIVAN Current LOS: 4 Anticipated DC Date: 02-03-2020 Planned Disposition: Home Primary Insurance: MEDICARE A & B Discharge Planning Comments: CM MET WITH PT IN ROOM TO DISCUSS DISCHARGE PLANNING AND NEEDS. PT REPORTS LIVING AT HOME INDEPENDENTLY WITH HIS . PT HAS NEBULIZER AND HOME / PORTABLE OXGYEN FROM [employer] [facility]. PT HAS NO OUTSIDE SERVICES ASSISTING IN THE HOME. CM DISCUSSED AVAILABILITY OF HOME HEALTH, REHAB SERVICES AND MEDICAL EQUIPMENT. PT DENIES DISCHARGE NEEDS, REPORTS HIS WILL PICK HIM UP FOR DISCHARGE HOMETODAY. IMPORTANT MESSAGE FROM MEDICARE PROVIDED AND EXPLAINED. BOTTOM PRESSER NURSE NOTIFED. Savings Counselor: Juan J Wagner DCPIA - Discharge Planning Initial Assessment Updated by [email or web address]: Juan J Wagner on 02/03/20 5:53 pm * Is the patient Alert and Oriented? Yes * How many steps to enter\exit or inside your home? * PCP DR. MEDRANO * Pharmacy [facility] [address] * Preadmission Environment Home with Family * ADLs Independent * Equipment Nebulizer Oxygen * Other Equipment HOME AND PORTABLE OXYGEN [employer] * List name and contact numbers for known caregivers / representatives who currently or will assist patient after discharge: AJ JAIN, SPOUSE, * Verbal permission to speak to the caregivers and representatives has been obtained from the patient. N/A * Community resources currently utilized None * Please name any agencies selected above. NONE * Additional services required to return to the preadmission environment? No * Can the patient safely return to the preadmission environment? Yes * Has this patient been hospitalized within the prior 30 days at any hospital? No Coverage Notice Reviewer: [email or web address] Darcie Bray Notice Issued Date-Time: 02/03/2020 16:00 Notice Type: IM Discharge Notice Notice Delivered To: Patient Relationship to Patient: Flume Tender Name: Delivery Method: HAND - Hand Delivered Poornima Days: Prior Verbal Notification: Recipient Understood Notice: Yes Recipient Signature: Yes Med Rec Note Co-signed by Attending: Coverage Notice Comment: DC IMM delivered, explained, signed by the patient, and placed in his chart. Signed form also left with patient. Patient Name: YESSY JAIN Page [phone] at 1756 All edits/amendments must be made on the electronic document DICTATION DATE: 02/03/201754 BANKING AND FINANCE INSTRUCTOR: RASHAD 02/03/201754 RPT#: [id number] DC DATE: STATUS: ADM IN [facility] [address] [place] [address] END OF REPORT
--- NOTE | 2020-02-03 18:09 | NUR ---
JENNY SILVA TOOK OUT PT'S IV WITH CATH INTACT AND GAVE PT DICHARGE INSTRUCTIONS ANSWERED ALL QUESTIONS. PT SIGNED CHART COPY. THIS NURSE TOOK PT OUT VIA WC WITH O2 TANK AND PT LEFT WITH IN THEIR PERSONAL CAR AND USED HIS OWN PORTABLE OXYGEN IN VEHICLE.
== END 2020-02-03 18:10 | disposition home or self-care (01) | DRG 193 ==
LOC: D.ER 18:08 → D.M2 22:21
PROVIDERS: Emergency Medicine; Family Medicine; ADMIT Internal Medicine Nephrology; ATTEND Internal Medicine Nephrology
DX: J18.9 Pneumonia, unspecified organism (principal); J96.21 Acute and chronic respiratory failure with hypoxia; J44.1 Chronic obstructive pulmonary disease with (acute) exacerbation; F17.213 Nicotine dependence, cigarettes, with withdrawal; J40 Bronchitis, not specified as acute or chronic; D64.9 Anemia, unspecified; F41.9 Anxiety disorder, unspecified; I10 Essential (primary) hypertension; K21.9 Gastro-esophageal reflux disease without esophagitis; G47.00 Insomnia, unspecified; E87.6 Hypokalemia

== ENCOUNTER → 2020-04-19 13:40 | Outpatient (CLI) | payer MEDICARE, BC ==
[2020-02-01 15:16] VITALS: BMI 19.3
[~2020-04-19 13:40] MED LIST changes: +VIBRAMYCIN 100100 MG PO
[2020-04-19 14:25] LABS: BASOPHILS 0.1 % (0-2); EOSINOPHILS 0.3 % (0-7); HEMATOCRIT 45.2 % (42.0-54.0); HEMOGLOBIN 14.3 g/dL (13.5-17.5); IMMATURE GRANULOCYTES 0.2 % (0-5); LYMPHOCYTES 6.2 % (15-50); MCH 29.1 pg (26.0-34.0); MCHC 31.6 g/dL (31.0-37.0); MCV 91.9 fL (80.0-100.0); MEAN PLATELET VOLUME 10.3 fL (7.4-10.4); MONOCYTES 2.9 % (2-11); NEUTROPHILS 90.3 % (40-80); PLATELET COUNT 232 10x3/uL (130-400); RBC 4.92 10x6/uL (4.20-6.10); RDW 13.1 % (11.5-14.5); WBC 9.2 10x3/uL (4.8-10.8)
== END | disposition home or self-care (01) ==
LOC: D.LAB 13:40
PROVIDERS: ATTEND Internal Medicine Pulmonary Disease
DX: J44.1 Chronic obstructive pulmonary disease with (acute) exacerbation (principal)